=== PATIENT | female | born 1940 | race Caucasian/White ===

== ENCOUNTER 2024-02-29 13:31 | Emergency (ER) | payer MEDICARE ==
[~2024-02-29] VITALS: Ht 152.4 cm; Wt 63.6 kg
[2024-02-29 13:48] VITALS: TEMP 98.1
[2024-02-29] MEDS ORDERED: LR 1,000 ML IV ONE (14:15)
[2024-02-29] MEDS ORDERED: Ondansetron 4 MG/2 ML VIAL IV ONE (14:15)
[2024-02-29 14:41] LABS: BASO # 0.1 K/mm3 (0.0-0.2); BASO % 0.8 % (0.0-2.0); EOS # 0.3 K/mm3 (0.0-0.7); EOS % 3.6 % (0.0-4.0); GRAN # 5.3 K/mm3 (1.4-6.5); GRAN % 61.5 % (42.2-75.2); HEMOGLOBIN 17.1 g/dl (12.5-16.0); LYMPH % 22.8 % (20.0-51.0); MEAN CELL VOLUME 90 fl (80.0-100.0); MEAN CORPUSCULAR HEMOGLOBIN 29 pg (27-31); MEAN CORPUSCULAR HGB CONC 32 g/dl (33.0-37.0); MEAN PLATELET VOLUME 11.1 fl (7.4-10.4); MONO # 0.9 K/mm3 (0.1-0.6); MONO % 10.8 % (1.7-9.3); PLATELET COUNT 153 K/mm3 (130-400); RED BLOOD COUNT 5.94 M/mm3 (4.10-5.30); REDCELL DISTRIBUTION WIDTH-CV 13.8 % (11.5-14.5)
[2024-02-29 14:42] LABS: HEMATOCRIT 53.3 % (37.0-47.0)
[2024-02-29 15:00] LABS: ALBUMIN 3.4 g/dL (3.4-4.8); BILIRUBIN,TOTAL 1.6 mg/dL (0.2-1.2); CALCIUM 9.2 mg/dL (8.4-10.2); CREATININE, serum 0.86 mg/dL (0.57-1.11); POTASSIUM 3.6 mEq/L (3.5-4.5); TOTAL PROTEIN 6.2 g/dl (6.2-8.1)
[2024-02-29] MEDS ORDERED: ZOFRAN ODT4 MG PO (15:48)
[2024-02-29 16:15] VITALS: BP 129/66; PULSE 84
[2024-02-29 16:18] LABS: C-REACTIVE PROTEIN 0.77 mg/dL (0.00-0.50)
== END 2024-02-29 16:21 | disposition home or self-care (01) ==
LOC: COL.ER 13:31
PROVIDERS: Family Medicine
DX: A08.4 Viral intestinal infection, unspecified (principal); E86.0 Dehydration
CPT/HCPCS: J2405; J7120